=== PATIENT | female | born 2000 | race Caucasian/White ===

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

== ENCOUNTER 2023-08-28 18:35 | Emergency (ER) | payer OTHER, SELFPAY ==
[~2023-08-28] VITALS: Ht 160 cm; Wt 75.0 kg
[~2023-08-28 18:35] MED LIST changes: +SERT25TA21 PO; +SERT50TA29
[2023-08-28 20:03] LABS: IONIZED CALCIUM 4.6 MG/DL (4.5-5.3); VENOUS BASE EXCESS -0.6 (-2.0-2.0); VENOUS HCO3 24.3 MMOL/L (23.0-27.0); VENOUS O2 SATURATION 75.4 % (60.0-80.0); VENOUS PARTIAL PRESSURE CO2 40.8 mmHg (38.0-50.0); VENOUS PARTIAL PRESSURE O2 41.5 mmHg (30.0-50.0); VENOUS PH 7.392 UNITS (7.330-7.430); VENOUS STANDARD HCO3 23.5 MMOL/L; VENOUS TOTAL CO2 25.5 MMOL/L (24.0-28.0)
[2023-08-28 20:11] LABS: BASO % 0.5 % (0.0-1.0); EOS # 0.1 10^3/uL (0.0-0.5); EOS % 1.3 % (0.0-3.0); HEMATOCRIT 36.9 % (36.0-47.0); HEMOGLOBIN 12.4 g/dl (12.0-15.5); LYMPH % 26.7 % (24.0-44.0); MEAN CORPUSCULAR HEMOGLOBIN 28.4 pg (27.0-33.0); MEAN CORPUSCULAR HGB CONC 33.6 g/dl (32.0-36.5); MEAN CORPUSCULAR VOLUME 84.4 fl (80.0-96.0); MONO # 0.5 10^3/uL (0.0-0.8); MONO % 6.1 % (2.0-8.0); NEUTROPHILS # 4.9 10^3/uL (1.5-8.5); NEUTROPHILS % 65.1 % (36.0-66.0); PLATELET COUNT, AUTOMATED 340 10^3/uL (150-450); RED BLOOD COUNT 4.37 10^6/uL (4.00-5.40); WHITE BLOOD COUNT 7.6 10^3/uL (4.0-10.0)
[2023-08-28 20:32] LABS: ALBUMIN 4.1 G/DL (3.2-5.2); ALKALINE PHOSPHATASE 78 U/L (46-116); ALT/SGPT 15 U/L (7.0-40); AST/SGOT 14 U/L (<34); BILIRUBIN,DIRECT 0.1 MG/DL (<0.4); BILIRUBIN,TOTAL 0.4 MG/DL (0.3-1.2); BLOOD UREA NITROGEN 10 MG/DL (9-23); CALCIUM LEVEL 9.5 MG/DL (8.5-10.1); CARBON DIOXIDE LEVEL 27 MMOL/L (20-31); CHLORIDE LEVEL 105 MMOL/L (98-107); CREATININE FOR GFR 1.03 MG/DL (0.55-1.30); GLOMERULAR FILTRATION RATE > 60.0 (>60); GLUCOSE, FASTING 85 MG/DL (60-100); MAGNESIUM LEVEL 1.9 MG/DL (1.8-2.4); POTASSIUM SERUM 3.8 MMOL/L (3.5-5.1); SODIUM LEVEL 141 MMOL/L (136-145); TOTAL PROTEIN 6.9 G/DL (5.7-8.2)
[2023-08-28 20:52] LABS: HCG, SERUM QUALITATIVE NEGATIVE (NEGATIVE)
[2023-08-28 20:53] LABS: BARBITURATES URINE NEGATIVE (NEGATIVE); BENZODIAZEPINES URINE NEGATIVE (NEGATIVE); CANNABINOIDS URINE NEGATIVE (NEGATIVE); COCAINE METABOLITE URINE NEGATIVE (NEGATIVE); METHADONE URINE NEGATIVE (NEGATIVE); OPIATES URINE NEGATIVE (NEGATIVE); PHENCYCLIDINE URINE NEGATIVE (NEGATIVE)
[2023-08-28 21:31] LABS: AMPHETAMINES LEVEL URINE NEGATIVE (NEGATIVE)
[2023-08-28 22:30] VITALS: BP 102/58; O2SAT 98
[2023-08-28 22:49] VITALS: TEMP 97.8
== END 2023-08-28 23:02 | disposition home or self-care (01) ==
LOC: M ED 18:35 → EDBD 18:35 → M ED 23:02
DX: R56.9 Unspecified convulsions (principal); F32.A Depression, unspecified; Z79.899 Other long term (current) drug therapy

== ENCOUNTER 2025-01-25 19:47 | Emergency (ER) | payer OTHER ==
[2025-01-25 20:33] LABS: VENOUS BASE EXCESS 1.1 (-2.0-2.0); VENOUS HCO3 26.7 MMOL/L (23.0-27.0); VENOUS O2 SATURATION 66.2 % (60.0-80.0); VENOUS PARTIAL PRESSURE CO2 46.7 mmHg (38.0-50.0); VENOUS PARTIAL PRESSURE O2 36.4 mmHg (30.0-50.0); VENOUS PH 7.375 UNITS (7.330-7.430); VENOUS STANDARD HCO3 24.8 MMOL/L; VENOUS TOTAL CO2 28.1 MMOL/L (24.0-28.0)
[2025-01-25] MEDS: NS (Normal Saline) 0.9% 1,000 ML IV ONE (20:33)
[2025-01-25 20:38] LABS: BASO # 0.1 10^3/uL (0.0-0.2); BASO % 0.6 % (0.0-1.0); EOS # 0.1 10^3/uL (0.0-0.5); EOS % 1.4 % (0.0-3.0); LYMPH # 2.6 10^3/uL (1.5-5.0); LYMPH % 32.1 % (24.0-44.0); MONO # 0.4 10^3/uL (0.0-0.8); MONO % 5.5 % (2.0-8.0); NEUTROPHILS # 4.8 10^3/uL (1.5-8.5); NEUTROPHILS % 60.2 % (36.0-66.0); PLATELET COUNT, AUTOMATED 348 10^3/uL (150-450)
[2025-01-25 21:06] LABS: ALT/SGPT 16 U/L (7.0-40); AST/SGOT 17 U/L (<34); CALCIUM LEVEL 9.3 MG/DL (8.5-10.1); CARBON DIOXIDE LEVEL 27 MMOL/L (20-31); CHLORIDE LEVEL 105 MMOL/L (98-107); CREATININE FOR GFR 0.75 MG/DL (0.55-1.30); GLOMERULAR FILTRATION RATE > 90.0 (>60); MAGNESIUM LEVEL 1.8 MG/DL (1.8-2.4); PHOSPHORUS LEVEL 4.1 MG/DL (2.5-4.9); POTASSIUM SERUM 3.8 MMOL/L (3.5-5.1); SODIUM LEVEL 143 MMOL/L (136-145)
[2025-01-26 00:35] VITALS: BP 104/64; TEMP 98.9; O2SAT 98
== END 2025-01-26 00:39 | disposition home or self-care (01) ==
LOC: M ED 19:47
DX: F44.5 Conversion disorder with seizures or convulsions (principal); Z79.899 Other long term (current) drug therapy